=== PATIENT | male | born 1960 | race Caucasian/White ===

== ENCOUNTER 2019-02-08 11:54 | Day surgery (SDC) | payer OTHER ==
[~2019-02-08 11:54] MED LIST: Lactated Ringers 1,000 ML IV SCH
--- NOTE | 2019-02-08 12:36 | PCM.PREANE ---
Preanesthetic Assessment - Anesthesia/Transfusion/Family Hx Anesthesia History: Prior Anesthesia Without Reaction Family History of Anesthesia Reaction: No Transfusion History: No Prior Transfusion(s) Intubation History: Unknown - Review of Systems General: No Symptoms Pulmonary: No Symptoms Cardiovascular: No Symptoms Gastrointestinal: Diarrhea (since) Neurological: No Symptoms Other: Reports: None - Physical Assessment Height: 1.78 m Weight: 83.461 kg ASA Class: 2 Mental Status: Alert & Oriented x3 Airway Class: Mallampati = 2 Dentition: Reports: Normal Dentition Thyro-Mental Finger Breadths: 3 Mouth Opening Finger Breadths: 3 ROM/Head Extension: Full Lungs: Clear to Auscultation, Normal Respiratory Effort Cardiovascular: Regular Rate, Regular Rhythm - Allergies Allergies/Adverse Reactions: Allergies Allergy/AdvReac Type Severity Reaction Status Date / Time amantadine Allergy Rash Verified 02/05/19 07:57 - Blood Blood Available: No - Anesthesia Plan Pre-Op Medication Ordered: None - Acknowledgements Anesthesia Type Planned: MAC Pt an Appropriate Candidate for the Planned Anesthesia: Yes Alternatives and Risks of Anesthesia Discussed w Pt/Guardian: Yes Pt/Guardian Understands and Agrees with Anesthesia Plan: Yes PreAnesthesia Questionnaire HEENT History: Reports: Glaucoma, Other (See Below) Other HEENT History: wears glasses Cardiovascular History: Reports: Heart Murmur, High Cholesterol, Hypertension Respiratory History: Reports: None Gastrointestinal History: Reports: Chronic Diarrhea Genitourinary History: Reports: None Musculoskeletal History: Reports: None Neurological History: Reports: None Psychiatric History: Reports: None Endocrine/Metabolic History: Reports: Diabetes, Type II Hematologic History: Reports: None Immunologic History: Reports: None Oncologic (Cancer) History: Reports: None Dermatologic History: Reports: Eczema - Past Surgical History Head Surgeries/Procedures: Reports: None HEENT Surgical History: Reports: Tonsillectomy Cardiovascular Surgical History: Reports: None Respiratory Surgical History: Reports: None GI Surgical History: Reports: Colonoscopy, Hernia, Inguinal Male Surgical History: Reports: None Endocrine Surgical History: Reports: None Neurological Surgical History: Reports: None Musculoskeletal Surgical History: Reports: None Oncologic Surgical History: Reports: None Dermatological Surgical History: Reports: None - SUBSTANCE USE Smoking Status *Q: Never Smoker Days Per Week of Alcohol Use: 7 Number of Drinks Per Day: 2 Total Drinks Per Week: 14 Recreational Drug Use History: No - HOME MEDS Home Medications: Home Meds Latanoprost/Pf [Latanoprost 0.005% Eye Drop] 1 drop EYEBOTH BEDTIME 02/05/19 [ History] Lisinopril 40 mg PO DAILY 02/05/19 [History] Sildenafil [Revatio] 5 tab PO ASDIRECTED PRN 02/05/19 [History] Simvastatin 20 mg PO BEDTIME 02/05/19 [History] hydroCHLOROthiazide [Hydrochlorothiazide] 12.5 mg PO DAILY 02/05/19 [History] - CURRENT (IN HOUSE) MEDS Current Meds: Current Medications Lactated Ringer's (Ringers, Lactated) 1,000 mls @ 125 mls/hr IV ASDIRECTED JUDITH
[2019-02-08] MEDS ORDERED: Midazolam 1 MG/ML 2 ML SDV ONE (13:19)
[2019-02-08] MEDS ORDERED: fentaNYL 100 MCG/2 ML SDV ONE (13:19)
[2019-02-08] MEDS ORDERED: Lidocaine 2% 5 ML SDV ONE (13:19)
[2019-02-08] MEDS ORDERED: Propofol 200 MG/20 ML SDV ONE ×2 (13:20)
--- NOTE | 2019-02-08 14:14 | PCM.OPNOTE ---
- General Post-Op/Procedure Note Date of Surgery/Procedure: 02/08/19 Operative Procedure(s): egd w bx. colonoscopy w bx Findings: see dict [id number] Pre Op Diagnosis: increase diarrhea and gerd Post-Op Diagnosis: Same Anesthesia Technique: Moderate Sedation Primary Surgeon: Mateo Rose Pathology: egd bx cecal bx Complications: None Condition: Good
--- NOTE | 2019-02-08 14:19 | PCM.POSTAN ---
POST ANESTHESIA ASSESSMENT - MENTAL STATUS Mental Status: Alert, Oriented - RESPIRATORY Respiratory Status: Respiratory Rate WNL, Airway Patent, O2 Saturation Stable - CARDIOVASCULAR CV Status: Pulse Rate WNL, Blood Pressure Stable - GASTROINTESTINAL GI Status: No Symptoms - POST OP HYDRATION Hydration Status: Adequate & Stable
--- NOTE | 2019-02-08 14:48 | PCM48HPAN ---
Post Anesthesia Note - EVALUATION WITHIN 48HRS OF ANESTHETIC Vital Signs in Normal Range: Yes Patient Participated in Evaluation: Yes Respiratory Function Stable: Yes Airway Patent: Yes Cardiovascular Function Stable: Yes Hydration Status Stable: Yes Pain Control Satisfactory: Yes Nausea and Vomiting Control Satisfactory: Yes Mental Status Recovered: Yes Resp Rate: 10
--- NOTE | 2019-02-08 15:09 | OR ---
SURGEON: Mateo Rose MD DATE OF PROCEDURE: 02/08/2019 PREOPERATIVE DIAGNOSIS: Increased diarrhea and acid reflux. POSTOPERATIVE DIAGNOSIS: Increased diarrhea and acid reflux. PROCEDURE PERFORMED: 1. EGD with biopsy. 2. Colonoscopy with biopsy. DESCRIPTION OF PROCEDURE: EGD: The patient was taken to the endoscopy room, and with the DRAPERY OPERATOR, Diprivan was administered. A well-lubricated EGD scope was gently inserted through the oropharynx, down the esophagus, passing through the gastroesophageal junction, into the stomach. The mucosa was examined upon the passage. Any etiology will be noted. Once in the stomach, we continued to advance to the distal antrum, passed through the pylorus into the second portion of the duodenum. Again, the mucosa was examined for any abnormality and etiology. The scope was then retrieved back to the stomach and then retroflexed to look at the fundus of the stomach. If a biopsy was indicated, we will biopsy the antrum, body, and gastroesophageal junction. The air will be sucked out while the scope is retrieved to reduce the patient's discomfort. The patient tolerated the procedure well. There were no intraoperative complications. Dr. Rose was present through the whole procedure. Prior to surgery, a time-out had been called, the patient identified, procedure identified and antibiotic administered. Colonoscopy: The patient was taken to the endoscopy room. A time out was called, patient identified, and procedure identified. Diprivan was then administrated. Patient went from awake to sleep, hearing doctor talking or door closing is normal. Perineum inspection and digital examination were then performed. A well-lubricated colonoscope was gently inserted through the rectum, advanced past the rectosigmoid junction, the descending colon, splenic flexure, transverse colon, hepatic flexure, ascending colon, arrived to the cecum. Cecum was identified as dictated in the finding. Then the scope was carefully withdrawn while attention was paid to the mucosal surface for any abnormality. Air will be sucked out during the scope withdrawal. At the rectum, retroflexed to examine any rectal diseases, fistula or hemorrhoids. During mucosal examination, biopsy performed. Patient tolerated procedure well. There were no intraoperative complications, and Dr. Rose was present throughout the whole procedure. EGD FINDIN. The patient is easily sedated with DRAPERY OPERATOR and Diprivan, patient is soundly snoring. 2. Oropharynx and proximal esophagus were free of disease, stricture, or inflammation. Distal esophagus at GE junction at 40 shows mild salmon- colored change suggestive of mild acid reflux. Stomach rugae is normal in appearance and antrum is quite inflamed and duodenum is grossly normal. Scope was retrieved back to the stomach and retroflexed to look at the fundus of stomach. There was no hiatal hernia. Biopsy done at antrum and body and GE junction at 40 and sucked out the gas while scope pulling out. During the whole study, there is no blood, bile, and food particle observed. COLONOSCOPY FINDIN. The patient is easily sedated with DRAPERY OPERATOR and Diprivan, patient is soundly snoring. 2. Colon is rather straight forward. Cecum indicated by ileocecal fold, one- to-one indentation, appendiceal orifice. Light emittance is not observed. Mucosa examined upon scope pulling out. The patient does not have diverticulosis, polyp, mass, growth, inflammation, stricture, ulceration, AV malformation, bleeding, none of those. The cecum is quite hyperemic. It does not look like inflammation, but when irrigated with water, it cleared a lot. Biopsy x2 anyway for hyperemic. The patient has internal hemorrhoids moderate in size, and the patient has two skin tags about a size of 5 mm to 6 mm on either side of the rectal opening at 5 o'clock, 7 o'clock. The patient would benefit from repeat colonoscopy in 10 years from today or if clinically indicated otherwise or if the biopsy indicated otherwise. We also talked about internal hemorrhoids, the patient is interested in surgery. TAJ / BAYRON /[id number] ROSALES
== END 2019-02-08 15:15 | disposition home or self-care (01) ==
LOC: MW.SDS 11:54
PROVIDERS: ATTEND Surgery
DX: K31.89 Other diseases of stomach and duodenum (principal); K21.9 Gastro-esophageal reflux disease without esophagitis; K64.8 Other hemorrhoids; K52.9 Noninfective gastroenteritis and colitis, unspecified
CPT/HCPCS: 43239; 45380; J2001; J2250; J2704; J3010; J7120; 88305; 88312

== ENCOUNTER 2019-06-12 06:52 | Day surgery (SDC) | payer OTHER ==
--- NOTE | 2019-06-12 07:19 | PCM.PREANE ---
Preanesthetic Assessment - Anesthesia/Transfusion/Family Hx Anesthesia History: Prior Anesthesia Without Reaction Family History of Anesthesia Reaction: No Transfusion History: No Prior Transfusion(s) Intubation History: Unknown - Review of Systems General: No Symptoms Pulmonary: No Symptoms Cardiovascular: No Symptoms Gastrointestinal: No Symptoms Neurological: No Symptoms Other: Reports: None - Physical Assessment Height: 5 ft 10 in Weight: 82.1 kg ASA Class: 2 Mental Status: Alert & Oriented x3 Airway Class: Mallampati = 3 Dentition: Reports: Normal Dentition (sharp edges on lower front teeth) Thyro-Mental Finger Breadths: 3 Mouth Opening Finger Breadths: 2 (small mouth) ROM/Head Extension: Full Lungs: Clear to Auscultation, Normal Respiratory Effort Cardiovascular: Regular Rate, Regular Rhythm - Allergies Allergies/Adverse Reactions: Allergies Allergy/AdvReac Type Severity Reaction Status Date / Time amantadine Allergy Rash Verified 06/06/19 11:16 cephalexin [From Keflex] Allergy Diarrhea Verified 06/06/19 13:10 - Blood Blood Available: No - Anesthesia Plan Pre-Op Medication Ordered: None - Acknowledgements Anesthesia Type Planned: General Anesthesia Pt an Appropriate Candidate for the Planned Anesthesia: Yes Alternatives and Risks of Anesthesia Discussed w Pt/Guardian: Yes Pt/Guardian Understands and Agrees with Anesthesia Plan: Yes PreAnesthesia Questionnaire HEENT History: Reports: Glaucoma, Other (See Below) Other HEENT History: wears glasses Cardiovascular History: Reports: Heart Murmur, High Cholesterol, Hypertension, Other (See Below) (aortic systolic murmer) Respiratory History: Reports: None Gastrointestinal History: Reports: GERD, Hemorrhoids Genitourinary History: Reports: None Musculoskeletal History: Reports: None Neurological History: Reports: None Psychiatric History: Reports: None Endocrine/Metabolic History: Reports: Other (See Below) Other Endocrine/Metabolic History: "prediabetic"- was on metformin before loosing weight due to diarrhea, increased uric acid Hematologic History: Reports: None Immunologic History: Reports: None Oncologic (Cancer) History: Reports: None Dermatologic History: Reports: Eczema - Past Surgical History Head Surgeries/Procedures: Reports: None HEENT Surgical History: Reports: Tonsillectomy Cardiovascular Surgical History: Reports: None Respiratory Surgical History: Reports: None GI Surgical History: Reports: Colonoscopy, EGD, Hernia, Inguinal Male Surgical History: Reports: None Endocrine Surgical History: Reports: None Neurological Surgical History: Reports: None Musculoskeletal Surgical History: Reports: None Oncologic Surgical History: Reports: None Dermatological Surgical History: Reports: None - SUBSTANCE USE Smoking Status *Q: Never Smoker Recreational Drug Use History: No - HOME MEDS Home Medications: Home Meds Latanoprost/Pf [Latanoprost 0.005% Eye Drop] 1 drop EYEBOTH BEDTIME 02/05/19 [ History] Lisinopril 40 mg PO DAILY 02/05/19 [History] Sildenafil [Revatio] 5 tab PO ASDIRECTED PRN 02/05/19 [History] Simvastatin 20 mg PO BEDTIME 02/05/19 [History] Allopurinol [Zyloprim] 100 mg PO DAILY 06/06/19 [History] Aspirin [Halfprin] 81 mg PO DAILY 06/06/19 [History] Furosemide [Lasix] 20 mg PO DAILY 06/06/19 [History] - CURRENT (IN HOUSE) MEDS Current Meds: Current Medications Lactated Ringer's (Ringers, Lactated) 1,000 mls @ 125 mls/hr IV ASDIRECTED JUDITH
[2019-06-12] MEDS ORDERED: Ondansetron 4 MG/2 ML SDV ONE (07:24)
[2019-06-12] MEDS ORDERED: Lidocaine 2% 5 ML SDV ONE (07:24)
[2019-06-12] MEDS ORDERED: Glycopyrrolate 0.2 MG/ML SDV ONE (07:24)
[2019-06-12] MEDS ORDERED: Neostigmine Methylsulfate 1 MG/ML 5 ML Syringe ONE (07:24)
[2019-06-12] MEDS ORDERED: Propofol 200 MG/20 ML SDV ONE (07:25)
[2019-06-12] MEDS ORDERED: fentaNYL 250 MCG/5 ML SDV ONE (07:25)
[2019-06-12] MEDS ORDERED: Midazolam 1 MG/ML 2 ML SDV ONE (07:25)
[2019-06-12] MEDS ORDERED: Rocuronium 100 MG/10 ML Syringe ONE (07:25)
[2019-06-12] MEDS ORDERED: Bupivacaine 25%/EPINEPHrine/PF 30 ML ONE (07:26)
[2019-06-12] MEDS ORDERED: Clindamycin Phosphate in D5W 600 MG in Premix Bag 1 BAG IV ONE ×2 (07:40)
[2019-06-12] MEDS ORDERED: Lactated Ringers 1,000 ML IV SCH (07:45)
[2019-06-12] MEDS ORDERED: Lidocaine 2% Jelly 30 ML Tube ONE (08:26)
[2019-06-12] MEDS ORDERED: Gelatin Sponge,Absorbable 12-7 mm Sponge TOP ONE (08:43)
[2019-06-12] MEDS ORDERED: EPINEPHrine 1:10,000 1 MG/10 ML Syringe IVPUSH PRN (09:10)
[2019-06-12] MEDS ORDERED: Atropine 0.1 MG/ML 10 ML Syringe IVPUSH PRN ×2 (09:10)
[2019-06-12] MEDS ORDERED: fentaNYL 100 MCG/2 ML SDV IVPUSH PRN (09:10)
[2019-06-12] MEDS ORDERED: Naloxone 0.4 MG/ML Syringe IVPUSH PRN (09:10)
[2019-06-12] MEDS ORDERED: 50% Dextrose in Water 50 ML Syringe IVPUSH PRN (09:10)
[2019-06-12] MEDS ORDERED: Albuterol 0.083% 2.5 MG/3 ML Neb Soln NEB PRN (09:10)
--- NOTE | 2019-06-12 09:12 | PCM.OPNOTE ---
- General Post-Op/Procedure Note Date of Surgery/Procedure: 06/12/19 Operative Procedure(s): hemorrhoidectomy Findings: 2 small hemorrhoid on each side was resected; [id number] Pre Op Diagnosis: hermorrhoid Post-Op Diagnosis: Same Anesthesia Technique: General ET Tube Primary Surgeon: Mateo Rose Pathology: sent Complications: None Condition: Good
[2019-06-12] MEDS ORDERED: Acetaminophen/oxyCODONE 325-5 MG Tab PO PRN (09:13)
--- NOTE | 2019-06-12 09:40 | PCM.POSTAN ---
POST ANESTHESIA ASSESSMENT - MENTAL STATUS Mental Status: Alert, Oriented - VITAL SIGNS Vital Signs: Last Vital Signs Temp 35.9 C 06/12/19 08:56 Pulse 83 06/12/19 09:31 Resp 18 06/12/19 09:31 BP 104/54 L 06/12/19 09:31 Pulse Ox 97 06/12/19 09:31 - RESPIRATORY Respiratory Status: Respiratory Rate WNL, Airway Patent, O2 Saturation Stable - CARDIOVASCULAR CV Status: Pulse Rate WNL, Blood Pressure Stable - GASTROINTESTINAL GI Status: No Symptoms - PAIN Pain Score: 0 - POST OP HYDRATION Hydration Status: Adequate & Stable - OBSERVATIONS Free Text/Narrative:: no anesthesia problems
--- NOTE | 2019-06-12 10:29 | PCM48HPAN ---
Post Anesthesia Note - EVALUATION WITHIN 48HRS OF ANESTHETIC Vital Signs in Normal Range: Yes Patient Participated in Evaluation: Yes Respiratory Function Stable: Yes Airway Patent: Yes Cardiovascular Function Stable: Yes Hydration Status Stable: Yes Pain Control Satisfactory: Yes Nausea and Vomiting Control Satisfactory: Yes Mental Status Recovered: Yes Vital Signs: Last Vital Signs Temp 36.1 C 06/12/19 09:45 Pulse 81 06/12/19 09:45 Resp 16 06/12/19 09:45 BP 120/75 06/12/19 09:45 Pulse Ox 95 06/12/19 09:45 - COMMENTS/OBSERVATIONS Free Text/Narrative:: no anesthesia problems
--- NOTE | 2019-06-12 11:25 | OR ---
SURGEON: Mateo Rose MD DATE OF PROCEDURE: 06/12/2019 PREOPERATIVE DIAGNOSIS: Hemorrhoids. POSTOPERATIVE DIAGNOSIS: Hemorrhoids. PROCEDURE PERFORMED: Hemorrhoidectomy. PRIMARY SURGEON: Mateo Rose MD. COMPLICATIONS: None. FINDINGS: The patient has two small hemorrhoids with a bit compound, external-internal, one on each side. In the prone position, the little bit bigger one at about 8 o'clock and somewhat smaller one at 5 o'clock. They are both removed. PROCEDURE IN DETAIL: The patient was taken to operating room and placed in a supine position. Upon induction of general endotracheal anesthesia, the patient was repositioned into a jackknife position. The patient was then prepped and draped in a sterile fashion. Time-out was then called, patient identified and procedure identified. Clindamycin 600 was given IV prophylactically. First, a three-finger dilatation and then followed with a speculum examination. The patient does not have any internal hemorrhoids, only just mild. The patient has two external hemorrhoids, a little bit compound, into a small component of internal hemorrhoid. On the prone position, one at 8 o'clock, another one at 5 o'clock. The 8 o'clock was resected first using 3-0 chromic stitch, at the far end was tied for hemostasis, and the hemorrhoid was then picked up and excised. The mucosa defect was repaired by use of 3-0 chromic. Followed by the second hemorrhoid and a similar procedure. Using a 3-0 chromic stitch, far end was tied for hemostasis followed with the hemorrhoid resected and mucosa defect was closed with baseball stitches, interlocking, for hemostasis. This was then followed with local injection for hemostasis and then Gelfoam with lidocaine was inserted for pain management. The patient was then repositioned into supine position, awakened, extubated, and transferred to recovery in hemodynamically stable condition. Hemorrhoidectomy was dry upon surgery finished, bone dry. The patient tolerated the procedure well. There were no intraoperative complications. Dr. Rose was present through the whole procedure. TAJ / BAYRON /[id number]
== END 2019-06-12 10:35 | disposition home or self-care (01) ==
LOC: MW.SDS 06:52
PROVIDERS: ATTEND Surgery
DX: K64.8 Other hemorrhoids (principal); K64.4 Residual hemorrhoidal skin tags; K21.9 Gastro-esophageal reflux disease without esophagitis; I10 Essential (primary) hypertension; E78.00 Pure hypercholesterolemia, unspecified; Z88.1 Allergy status to other antibiotic agents; Z88.8 Allergy status to other drugs, medicaments and biological substances; Z79.82 Long term (current) use of aspirin; Z79.899 Other long term (current) drug therapy
CPT/HCPCS: J2001; J2250; J2405; J2704; J3010; J3490; J7120

== ENCOUNTER 2019-07-11 12:31 | Emergency (ER) | payer SELFPAY ==
[2019-07-11] MEDS ORDERED: Sodium Chloride 0.9% 2.5 ML Syringe FLUSH PRN (12:34)
[2019-07-11] MEDS ORDERED: Sodium Chloride 0.9% 10 ML Syringe FLUSH PRN (12:34)
--- NOTE | 2019-07-11 13:30 | CR ---
Chest: Portable view of the chest was obtained. Comparison: Prior chest CT of 07/11/19 and chest x-ray of 06/26/19. Moderately large right sided pleural effusion is seen. Findings are slightly more prominent than on previous chest x-ray. Findings cause some adjacent atelectasis within the right lung. There is a small amount of fluid extending into the right minor fissure. Left lung is clear. Heart size appears within normal limits for portable technique. Upper mediastinum is normal. Bony structures are grossly intact. Impression: 1. Moderately large right-sided pleural effusion slightly increased in amount from previous chest x-ray. 2. Atelectasis adjacent to the pleural effusion. 3. Other portions of the portable chest x-ray are unremarkable. Diagnostic code #3 MTDD
[2019-07-11 13:54] LABS: BLOOD UREA NITROGEN,BUN 24 mg/dL (7.0-18.0); CARBON DIOXIDE,CO2 28.6 mmol/L (21.0-32.0); CHLORIDE,CL 100 mmol/L (98-107); GLUCOSE RANDOM 90 mg/dL (74-106); POTASSIUM,K 3.8 mmol/L (3.5-5.1); SODIUM,NA 138 mmol/L (136-148)
--- NOTE | 2019-07-11 14:20 | EDM.PDOC ---
ED HPI GENERAL MEDICAL PROBLEM - General Chief Complaint: Respiratory Problem Stated Complaint: FLUID IN LT LUNG Time Seen by Provider: 07/11/19 12:32 Source of Information: Reports: Patient History Limitations: Reports: No Limitations - History of Present Illness INITIAL COMMENTS - FREE TEXT/NARRATIVE: History of present illness: []Patient was transferred to the ER by general surgery for transfer to another facility for pleuracentesis. Found to have a large right pleural effusion in his right lung and liver metastases on CT scans. We do not have a radiologist at this facility and cannot do the procedure here. Dr. Gomez, our retail cosmetics sales beauty advisor, is also working with this patient is concerned about right heart failure. Patient states that he gets short of breath with exertion but is fine when he is laying in bed. He has no other complaints at this time. Review of systems: As per history of present illness and below otherwise all systems reviewed and negative. Past medical history: As per history of present illness and as reviewed below otherwise noncontributory. Surgical history: As per history of present illness and as reviewed below otherwise noncontributory. Social history: No reported history of drug or alcohol abuse. Family history: As per history of present illness and as reviewed below otherwise noncontributory. Physical exam: General: Well developed, well nourished in NAD HEENT: Atraumatic, normocephalic, pupils reactive, negative for conjunctival pallor or scleral icterus, mucous membranes moist, throat clear, neck supple, nontender, trachea midline. Lungs: Clear to auscultation, breath sounds equal bilaterally, chest nontender. Heart: S1S2, regular, negative for clicks, rubs, or JVD. Abdomen: NABS, Soft, nondistended, nontender. Negative for masses or hepatosplenomegaly. Negative for costovertebral tenderness. Pelvis: Stable nontender. Genitourinary: Deferred. Rectal: Deferred. Extremities: Atraumatic, negative for cords or calf pain. Neurovascular unremarkable. Neuro: Awake, alert, oriented. Cranial nerves II through XII unremarkable. Cerebellum unremarkable. Motor and sensory unremarkable throughout. Exam nonfocal. Skin:warm and dry Diagnostics: CBC, chemistry, INR, PTT, chest x-ray Therapeutics: None ED Course: Amanda Tineo accepts patient transfer understanding of need for admission and workup. Impression: Right pleural effusion with liver metastases, unknown primary Prescriptions: None Plan: transfer To [facility] by EMS ground Definitive disposition and diagnosis as appropriate pending reevaluation and review of above. - Related Data Allergies Allergy/AdvReac Type Severity Reaction Status Date / Time amantadine Allergy Rash Verified 07/11/19 12:52 cephalexin [From Keflex] Allergy Diarrhea Verified 07/11/19 12:52 Home Meds: Home Meds Latanoprost/Pf [Latanoprost 0.005% Eye Drop] 1 drop EYEBOTH BEDTIME 02/05/19 [ History] Lisinopril 40 mg PO DAILY 02/05/19 [History] Simvastatin 20 mg PO BEDTIME 02/05/19 [History] Allopurinol [Zyloprim] 100 mg PO DAILY 06/06/19 [History] Bumetanide 2 mg PO ASDIRECTED 07/11/19 [History] Colesevelam [Welchol] 625 mg PO ASDIRECTED 07/11/19 [History] Potassium 20 meq PO ASDIRECTED 07/11/19 [History] Past Medical History HEENT History: Reports: Glaucoma, Other (See Below) Other HEENT History: wears glasses Cardiovascular History: Reports: Heart Murmur, High Cholesterol, Hypertension, Other (See Below) Respiratory History: Reports: None Gastrointestinal History: Reports: GERD, Hemorrhoids Genitourinary History: Reports: None Musculoskeletal History: Reports: None Neurological History: Reports: None Psychiatric History: Reports: None Endocrine/Metabolic History: Reports: Other (See Below) Other Endocrine/Metabolic History: "prediabetic"- was on metformin before loosing weight due to diarrhea, increased uric acid Hematologic History: Reports: None Immunologic History: Reports: None Oncologic (Cancer) History: Reports: None Dermatologic History: Reports: Eczema - Infectious Disease History Infectious Disease History: Reports: None - Past Surgical History Head Surgeries/Procedures: Reports: None HEENT Surgical History: Reports: Tonsillectomy Cardiovascular Surgical History: Reports: None Respiratory Surgical History: Reports: None GI Surgical History: Reports: Colonoscopy, EGD, Hernia, Inguinal Male Surgical History: Reports: None Endocrine Surgical History: Reports: None Neurological Surgical History: Reports: None Musculoskeletal Surgical History: Reports: None Oncologic Surgical History: Reports: None Dermatological Surgical History: Reports: None Social & Family History - Family History Family Medical History: Noncontributory - Tobacco Use Smoking Status *Q: Never Smoker Second Hand Smoke Exposure: No - Caffeine Use Caffeine Use: Reports: Coffee - Recreational Drug Use Recreational Drug Use: No ED ROS GENERAL - Review of Systems Review Of Systems: See Below ED EXAM, GENERAL - Physical Exam Exam: See Below Course - Vital Signs Last Recorded V/S: Last Vital Signs Temp 97.3 F 07/11/19 14:55 Pulse 97 07/11/19 14:55 Resp 18 07/11/19 14:55 BP 106/72 07/11/19 14:55 Pulse Ox 97 07/11/19 14:55 - Orders/Labs/Meds Orders: Active Orders 24 hr Category Date Time Status Saline Lock Insert [OM.PC] Stat Oth 07/11/19 12:34 Ordered Labs: Laboratory Tests 07/11/19 07/11/19 07/11/19 Range/Units 13:20 13:20 13:20 WBC 9.30 (4.0-11.0) K/uL RBC 4.70 (4.50-5.90) M/uL Hgb 14.5 (13.0-17.0) g/dL Hct 43.3 (38.0-50.0) % MCV 92.1 (80.0-98.0) fL MCH 30.9 (27.0-32.0) pg MCHC 33.5 (31.0-37.0) g/dL RDW Std Deviation 48.0 (28.0-62.0) fl RDW Coeff of Tia 14 (11.0-15.0) % Plt Count 486 H (150-400) K/uL MPV 9.80 (7.40-12.00) fL Neut % (Auto) 72.4 (48.0-80.0) % Lymph % (Auto) 15.8 L (16.0-40.0) % Pershing % (Auto) 10.4 (0.0-15.0) % Eos % (Auto) 1.0 (0.0-7.0) % Baso % (Auto) 0.4 (0.0-1.5) % Neut # (Auto) 6.7 H (1.4-5.7) K/uL Lymph # (Auto) 1.5 (0.6-2.4) K/uL Pershing # (Auto) 1.0 H (0.0-0.8) K/uL Eos # (Auto) 0.1 (0.0-0.7) K/uL Baso # (Auto) 0.0 (0.0-0.1) K/uL Nucleated RBC % 0.0 /100WBC Nucleated RBCs # 0 K/uL INR 1.16 APTT 27.3 (18.6-31.3) SEC Sodium 138 (136-148) mmol/L Potassium 3.8 (3.5-5.1) mmol/L Chloride 100 (98-107) mmol/L Carbon Dioxide 28.6 (21.0-32.0) mmol/L BUN 24 H (7.0-18.0) mg/dL Creatinine 1.1 (0.8-1.3) mg/dL Est Cr Clr Drug Dosing 73.74 mL/min Estimated GFR (MDRD) > 60.0 ml/min Glucose 90 (74-106) mg/dL Calcium 8.6 (8.5-10.1) mg/dL Total Bilirubin 1.0 (0.2-1.0) mg/dL AST 43 H (15-37) IU/L ALT 64 H (14-63) IU/L Alkaline Phosphatase 328 H (46-116) U/L Total Protein 6.2 L (6.4-8.2) g/dL Albumin 2.8 L (3.4-5.0) g/dL Globulin 3.4 (2.6-4.0) g/dL Albumin/Globulin Ratio 0.8 L (0.9-1.6) Meds: Medications Discontinued Medications Generic Name Dose Route Start Last Admin Trade Name Freq PRN Reason Stop Dose Admin Sodium Chloride 10 ml 07/11/19 12:34 Saline Flush FLUSH ASDIRECTED PRN Keep Vein Open Sodium Chloride 2.5 ml 07/11/19 12:34 Saline Flush FLUSH ASDIRECTED PRN Keep Vein Open Departure - Departure Time of Disposition: 15:20 Disposition: DC/Tfer to Acute Hospital 02 Condition: Fair Clinical Impression: Recurrent right pleural effusion, Liver metastases - Discharge Information *PRESCRIPTION DRUG MONITORING PROGRAM REVIEWED*: No *COPY OF PRESCRIPTION DRUG MONITORING REPORT IN PATIENT BRIGHT: No Referrals: Mateo Rose MD [Primary Care Provider] - Forms: ED Department Discharge - My Orders Last 24 Hours: My Active Orders 07/11/19 12:34 Saline Lock Insert [OM.PC] Stat - Assessment/Plan Last 24 Hours: My Active Orders 07/11/19 12:34 Saline Lock Insert [OM.PC] Stat
== END 2019-07-11 14:56 ==
LOC: MW.ED 12:31
DX: J90 Pleural effusion, not elsewhere classified (principal); C80.1 Malignant (primary) neoplasm, unspecified; C78.7 Secondary malignant neoplasm of liver and intrahepatic bile duct; Z88.8 Allergy status to other drugs, medicaments and biological substances; Z88.1 Allergy status to other antibiotic agents
CPT/HCPCS: 36415; 71045; 71045-26; 80053; 85025; 85610; 85730; 99284-25

== ENCOUNTER 2020-05-14 15:33 | Emergency (ER) | payer OTHER ==
[2020-05-14] MEDS ORDERED: Sodium Chloride 0.9% 10 ML Syringe FLUSH PRN (16:27)
[2020-05-14] MEDS ORDERED: Sodium Chloride 0.9% 2.5 ML Syringe FLUSH PRN (16:27)
--- NOTE | 2020-05-14 16:35 | EDM.PDOC ---
<Carlos Morrison - Last Filed: 05/14/20 19:51> ED HPI GENERAL MEDICAL PROBLEM - General Chief Complaint: Respiratory Problem Stated Complaint: COUGHING LOW GRADE FEVER Time Seen by Provider: 05/14/20 15:36 - Related Data Allergies Allergy/AdvReac Type Severity Reaction Status Date / Time amantadine Allergy Rash Verified 07/11/19 12:52 cephalexin [From Keflex] Allergy Diarrhea Verified 07/11/19 12:52 Home Meds: Home Meds Latanoprost/Pf [Latanoprost 0.005% Eye Drop] 1 drop EYEBOTH BEDTIME 02/05/19 [History] Simvastatin 20 mg PO BEDTIME 02/05/19 [History] allopurinoL [Zyloprim] 100 mg PO DAILY 06/06/19 [History] Bumetanide 2 mg PO ASDIRECTED 07/11/19 [History] Colesevelam [Welchol] 625 mg PO BID 07/11/19 [History] Potassium 20 meq PO BID 07/11/19 [History] Albuterol Sulfate [Proair Hfa] 2 puff INH Q6H 05/14/20 [History] Amoxicillin/Potassium Clav [Augmentin 875-125 Tablet] 1 each PO BID 7 Days #14 tablet 05/14/20 [Rx] Aspirin [Halfprin] 81 mg PO DAILY 05/14/20 [History] Esomeprazole [NexIUM] 40 mg PO DAILY 05/14/20 [History] Iron Polysaccharides Complex [Ferrex 150] 150 mg PO BID 05/14/20 [History] Lanreotide Acetate [Somatuline Depot] 120 mg SUBCUT ASDIRECTED 05/14/20 [History] Multivitamin/Iron/Folic Acid [Centrum Adults Tablet] 1 each PO DAILY 05/14/20 [History] Pyridoxine HCl (Vitamin B6) [Vitamin B-6] 100 mg PO DAILY 05/14/20 [History] Course - Re-Assessments/Exams Free Text/Narrative Re-Assessment/Exam: 05/14/20 19:51 Carlos Morrison DO attending physician: I have discussed this patient's care with PRIMO Orona and agree with plan and management. Patient is to f/u with his high climber on Monday. He was explained strict return precautions. He agrees with and understands plan. No acute pathology warranting hospital admission identified on this ED visit, although patient does have many chronic comorbidities and should follow-up on 05/18/2020 or in ED sooner if worsening condition. Departure - Departure Disposition: Home, Self-Care 01 Clinical Impression: Pleural effusion - Discharge Information Prescriptions: Amoxicillin/Potassium Clav [Augmentin 875-125 Tablet] 1 each PO BID 7 Days #14 tablet Instructions: Pleural Effusion Referrals: Jackson Potts MD [Primary Care Provider] - Forms: ED Department Discharge Additional Instructions: The following information is given to patients seen in the emergency department who are being discharged to home. This information is to outline your options for follow-up care. We provide all patients seen in our emergency department with a follow-up referral. The need for follow-up, as well as the timing and circumstances, are variable depending upon the specifics of your emergency department visit. If you don't have a primary care physician on staff, we will provide you with a referral. We always advise you to contact your personal physician following an emergency department visit to inform them of the circumstance of the visit and for follow-up with them and/or the need for any referrals to a consulting specialist. The emergency department will also refer you to a specialist when appropriate. This referral assures that you have the opportunity for follow-up care with a specialist. All of these measure are taken in an effort to provide you with optimal care, which includes your follow-up. Under all circumstances we always encourage you to contact your private physician who remains a resource for coordinating your care. When calling for follow-up care, please make the office aware that this follow-up is from your recent emergency room visit. If for any reason you are refused follow-up, please contact the [facility] Emergency Department at and asked to speak to the emergency department charge nurse. [facility] [address] [place] [id number] [facility] [address] [place] [id number] 1. Take medication as prescribed. You can alternate ibuprofen and Tylenol as directed for pain and discomfort. 2. Follow-up with your primary care provider and high climber as scheduled and as discussed. Return to the ED as needed and as discussed. <Lori Orona - Last Filed: 05/14/20 20:32> ED HPI GENERAL MEDICAL PROBLEM - General Source of Information: Reports: Patient, Family History Limitations: Reports: No Limitations - History of Present Illness INITIAL COMMENTS - FREE TEXT/NARRATIVE: HISTORY AND PHYSICAL: History of present illness: Patient is a 59-year-old male who presents to the ED today with concern of fever since yesterday of approximately 101. Patient presents today with his and has a complex medical history with neurogenic endocrine malignancy with metastasis, stage 4 with congestive heart failure. Patient's explains that patient has had numerous paracentesis procedures done in order to remove fluid out of patient's lung since diagnosis of cancer Patient's states that he recently had a procedure that resulted in a collapsed lung and patient had to have a chest tube in the middle of April. Patient's then states that patient had another pleurocentesis on Monday (2 days ago) at [facility] in [place] and was told that they were unable to drain all of the fluid due to loculations. Patient states then he went home and started feeling feverish and has a documented 101 temperature yesterday at home. Patient states he has an appointment on Monday with a high climber in [place] to further assess the loculations. Patient states that he called his primary care doctor today about his symptoms and was told to come to the emergency room. Patient states that he is not on chemotherapy but does receive an injection every 4 weeks for treatment of his cancer. Patient states he has also had a cough for 1 month and has not been tested for coronavirus or had any exposure that he is aware of. Patient's states that he also stopped warfarin 2 weeks ago because he was having bleeding issues with these procedures of drawing out fluid from his lungs. Patient states he was originally placed on the warfarin as he had 3 valves replaced in November at [facility] and was told that he needed to be on warfarin for 6 months. Patient denies chest pain, shortness of breath. Denies headache, neck stiff ness, change in vision, syncope, or near syncope. Denies nausea, vomiting, abdominal pain, diarrhea, constipation, or dysuria. Has not noted any blood in urine or stool. Patient has been eating and drinking appropriately. Review of systems: As per history of present illness and below otherwise all systems reviewed and negative. Past medical history: As per history of present illness and as reviewed below otherwise noncontributory. Surgical history: As per history of present illness and as reviewed below otherwise noncontributory. Social history: See social history for further information Family history: As per history of present illness and as reviewed below otherwise noncontributory. Physical exam: General: Patient is alert, oriented, and in no acute distress. Patient sitting comfortably on exam table. HEENT: Atraumatic, normocephalic, pupils equal and reactive bilaterally, negative for conjunctival pallor or scleral icterus, mucous membranes moist, TMs normal bilaterally, throat clear, neck supple, nontender, trachea midline. No drooling or trismus noted. No meningeal signs. No hot potato voice noted. Lungs: Patient speaking clearly without breathlessness, no wheezing or stridor, no accessory muscle use or respiratory distress. Auscultation deferred due to current COV-ID 19 outbreak but patient does have a periodic dry cough no exam. Heart: Auscultation deferred due to current COV-ID 19 outbreak. Abdomen: Nondistended Pelvis: Stable nontender. Genitourinary: Deferred. Rectal: Deferred. Skin: Intact, warm, dry. No lesions or rashes noted. Extremities: Atraumatic, negative for cords or calf pain. Neurovascular unremarkable. Neuro: Awake, alert, oriented. Cranial nerves II through XII unremarkable. Cerebellum unremarkable. Motor and sensory unremarkable throughout. Exam nonfocal. Notes: Tamiko Shrestha verbally involved in patient care. Patient does have an appointment Monday morning with high climber to address loculations. Patient also states that his hemoglobin has been low which is in part why he also came off warfarin and is working with his primary care provider on finding if there is a source of bleed. He said his last hgb was around 8. Vitals have been stable throughout stay in ED and repeat temperature checks show no indication of fever. Will provide patient with abx for possible early pneumonia with close follow up outpatient. Thoroughly discussed signs and symptoms with patient that would prompt return to the ED. Voices understanding and is agreeable to plan of care. Denies any further questions or concerns at this time. Diagnostics: CBC, CMP, UA, CXR, Trop, EKG, Blood culture x 2, lactate, COVID-19, PT/INR Therapeutics: Saline lock Prescription: Augmentin Impression: Pleural effusion, chronic Anemia, chronic Congestive Heart Failure Plan: 1. Take medication as prescribed. You can alternate ibuprofen and Tylenol as directed for pain and discomfort. 2. Follow-up with your primary care provider and high climber as scheduled and as discussed. Return to the ED as needed and as discussed. Definitive disposition and diagnosis as appropriate pending reevaluation and review of above. Past Medical History HEENT History: Reports: Glaucoma, Other (See Below) Other HEENT History: wears glasses Cardiovascular History: Reports: Heart Murmur, High Cholesterol, Hypertension, Other (See Below) Respiratory History: Reports: None Gastrointestinal History: Reports: GERD, Hemorrhoids Genitourinary History: Reports: None Musculoskeletal History: Reports: None Neurological History: Reports: None Psychiatric History: Reports: None Endocrine/Metabolic History: Reports: Other (See Below) Other Endocrine/Metabolic History: "prediabetic"- was on metformin before loosing weight due to diarrhea, increased uric acid Hematologic History: Reports: None Immunologic History: Reports: None Oncologic (Cancer) History: Reports: None Other Oncologic History: Neuroendocrine Carcinoma Dermatologic History: Reports: Eczema - Infectious Disease History Infectious Disease History: Reports: None - Past Surgical History Head Surgeries/Procedures: Reports: None HEENT Surgical History: Reports: Tonsillectomy Cardiovascular Surgical History: Reports: None Respiratory Surgical History: Reports: None GI Surgical History: Reports: Colonoscopy, EGD, Hernia, Inguinal Male Surgical History: Reports: None Endocrine Surgical History: Reports: None Neurological Surgical History: Reports: None Musculoskeletal Surgical History: Reports: None Oncologic Surgical History: Reports: None Dermatological Surgical History: Reports: None Social & Family History - Family History Family Medical History: Noncontributory - Tobacco Use Smoking Status *Q: Never Smoker - Caffeine Use Caffeine Use: Reports: None - Recreational Drug Use Recreational Drug Use: No ED ROS GENERAL - Review of Systems Review Of Systems: Comprehensive ROS is negative, except as noted in HPI. ED EXAM, GENERAL - Physical Exam Exam: See Below (see dictation) Course - Vital Signs Last Recorded V/S: Last Vital Signs Temp 98.3 F 05/14/20 20:22 Pulse 81 05/14/20 20:22 Resp 20 08/06/20 20:22 BP 105/64 05/14/20 20:22 Pulse Ox 94 L 05/14/20 20:22 - Orders/Labs/Meds Orders: Active Orders 24 hr Category Date Time Status Cardiac Monitoring [RC] . DIRECTED Care 05/14/20 16:27 Active EKG Documentation Completion [RC] STAT Care 05/14/20 16:27 Active CULTURE BLOOD [BC] Stat Lab 05/14/20 16:40 Received CULTURE BLOOD [BC] Stat Lab 05/14/20 16:50 Received Sodium Chloride 0.9% [Saline Flush] Med 05/14/20 16:27 Active 10 ml FLUSH ASDIRECTED PRN Sodium Chloride 0.9% [Saline Flush] Med 05/14/20 16:27 Active 2.5 ml FLUSH ASDIRECTED PRN Blood Culture x2 Reflex Set [OM.PC] Stat Oth 05/14/20 16:28 Ordered Saline Lock Insert [OM.PC] Stat Oth 05/14/20 16:27 Ordered Medication Orders Sodium Chloride (Saline Flush) 2.5 ml FLUSH ASDIRECTED PRN PRN Reason: Keep Vein Open Sodium Chloride (Saline Flush) 10 ml FLUSH ASDIRECTED PRN PRN Reason: Keep Vein Open Labs: Laboratory Tests 05/14/20 05/14/20 05/14/20 Range/Units 16:40 16:40 16:40 WBC 10.14 (4.0-11.0) K/uL RBC 3.50 L (4.50-5.90) M/uL Hgb 8.8 L (13.0-17.0) g/dL Hct 30.0 L (38.0-50.0) % MCV 85.7 (80.0-98.0) fL MCH 25.1 L (27.0-32.0) pg MCHC 29.3 L (31.0-37.0) g/dL RDW Std Deviation 64.2 H (28.0-62.0) fl RDW Coeff of Tia 21 H (11.0-15.0) % Plt Count 471 H (150-400) K/uL MPV 10.10 (7.40-12.00) fL Neut % (Auto) 74.3 (48.0-80.0) % Lymph % (Auto) 11.2 L (16.0-40.0) % [place] % (Auto) 10.6 (0.0-15.0) % Eos % (Auto) 3.3 (0.0-7.0) % Baso % (Auto) 0.6 (0.0-1.5) % Neut # (Auto) 7.5 H (1.4-5.7) K/uL Lymph # (Auto) 1.1 (0.6-2.4) K/uL [place] # (Auto) 1.1 H (0.0-0.8) K/uL Eos # (Auto) 0.3 (0.0-0.7) K/uL Baso # (Auto) 0.1 (0.0-0.1) K/uL Nucleated RBC % 0.0 /100WBC Nucleated RBCs # 0 K/uL INR Lactate (0.20-2.00) mmol/L Sodium 135 L (136-148) mmol/L Potassium 3.9 (3.5-5.1) mmol/L Chloride 96 L (98-107) mmol/L Carbon Dioxide 33.0 H (21.0-32.0) mmol/L BUN 18 (7.0-18.0) mg/dL Creatinine 1.2 (0.8-1.3) mg/dL Est Cr Clr Drug Dosing 66.75 mL/min Estimated GFR (MDRD) > 60.0 ml/min Glucose 100 (74-106) mg/dL Calcium 8.7 (8.5-10.1) mg/dL Total Bilirubin 0.5 (0.2-1.0) mg/dL AST 24 (15-37) IU/L ALT 29 (14-63) IU/L Alkaline Phosphatase 717 H (46-116) U/L Troponin I < 0.050 (0.000-0.056) ng/mL B-Natriuretic Peptide (<100) PG/ML Total Protein 8.5 H (6.4-8.2) g/dL Albumin 3.3 L (3.4-5.0) g/dL Globulin 5.2 H (2.6-4.0) g/dL Albumin/Globulin Ratio 0.6 L (0.9-1.6) Urine Color YELLOW Urine Appearance CLEAR Urine pH 6.5 (5.0-8.0) Ur Specific [place] 1.010 (1.001-1.035) Urine Protein NEGATIVE (NEGATIVE) mg/dL Urine Glucose (UA) NEGATIVE (NEGATIVE) mg/dL Urine Ketones NEGATIVE (NEGATIVE) mg/dL Urine Occult Blood NEGATIVE (NEGATIVE) Urine Nitrite NEGATIVE (NEGATIVE) Urine Bilirubin NEGATIVE (NEGATIVE) Urine Urobilinogen 0.2 (<2.0) EU/dL Ur Leukocyte Esterase NEGATIVE (NEGATIVE) COVID-19 (JUAN CARLOS) (NEGATIVE) 05/14/20 05/14/20 05/14/20 Range/Units 16:40 16:40 16:40 WBC (4.0-11.0) K/uL RBC (4.50-5.90) M/uL Hgb (13.0-17.0) g/dL Hct (38.0-50.0) % MCV (80.0-98.0) fL MCH (27.0-32.0) pg MCHC (31.0-37.0) g/dL RDW Std Deviation (28.0-62.0) fl RDW Coeff of Tia (11.0-15.0) % Plt Count (150-400) K/uL MPV (7.40-12.00) fL Neut % (Auto) (48.0-80.0) % Lymph % (Auto) (16.0-40.0) % [place] % (Auto) (0.0-15.0) % Eos % (Auto) (0.0-7.0) % Baso % (Auto) (0.0-1.5) % Neut # (Auto) (1.4-5.7) K/uL Lymph # (Auto) (0.6-2.4) K/uL [place] # (Auto) (0.0-0.8) K/uL Eos # (Auto) (0.0-0.7) K/uL Baso # (Auto) (0.0-0.1) K/uL Nucleated RBC % /100WBC Nucleated RBCs # K/uL INR 1.29 Lactate 0.6 (0.20-2.00) mmol/L Sodium (136-148) mmol/L Potassium (3.5-5.1) mmol/L Chloride (98-107) mmol/L Carbon Dioxide (21.0-32.0) mmol/L BUN (7.0-18.0) mg/dL Creatinine (0.8-1.3) mg/dL Est Cr Clr Drug Dosing mL/min Estimated GFR (MDRD) ml/min Glucose (74-106) mg/dL Calcium (8.5-10.1) mg/dL Total Bilirubin (0.2-1.0) mg/dL AST (15-37) IU/L ALT (14-63) IU/L Alkaline Phosphatase (46-116) U/L Troponin I (0.000-0.056) ng/mL B-Natriuretic Peptide 140 H (<100) PG/ML Total Protein (6.4-8.2) g/dL Albumin (3.4-5.0) g/dL Globulin (2.6-4.0) g/dL Albumin/Globulin Ratio (0.9-1.6) Urine Color Urine Appearance Urine pH (5.0-8.0) Ur Specific [place] (1.001-1.035) Urine Protein (NEGATIVE) mg/dL Urine Glucose (UA) (NEGATIVE) mg/dL Urine Ketones (NEGATIVE) mg/dL Urine Occult Blood (NEGATIVE) Urine Nitrite (NEGATIVE) Urine Bilirubin (NEGATIVE) Urine Urobilinogen (<2.0) EU/dL Ur Leukocyte Esterase (NEGATIVE) COVID-19 (JUAN CARLOS) (NEGATIVE) 05/14/20 Range/Units 16:51 WBC (4.0-11.0) K/uL RBC (4.50-5.90) M/uL Hgb (13.0-17.0) g/dL Hct (38.0-50.0) % MCV (80.0-98.0) fL MCH (27.0-32.0) pg MCHC (31.0-37.0) g/dL RDW Std Deviation (28.0-62.0) fl RDW Coeff of Tia (11.0-15.0) % Plt Count (150-400) K/uL MPV (7.40-12.00) fL Neut % (Auto) (48.0-80.0) % Lymph % (Auto) (16.0-40.0) % [place] % (Auto) (0.0-15.0) % Eos % (Auto) (0.0-7.0) % Baso % (Auto) (0.0-1.5) % Neut # (Auto) (1.4-5.7) K/uL Lymph # (Auto) (0.6-2.4) K/uL [place] # (Auto) (0.0-0.8) K/uL Eos # (Auto) (0.0-0.7) K/uL Baso # (Auto) (0.0-0.1) K/uL Nucleated RBC % /100WBC Nucleated RBCs # K/uL INR Lactate (0.20-2.00) mmol/L Sodium (136-148) mmol/L Potassium (3.5-5.1) mmol/L Chloride (98-107) mmol/L Carbon Dioxide (21.0-32.0) mmol/L BUN (7.0-18.0) mg/dL Creatinine (0.8-1.3) mg/dL Est Cr Clr Drug Dosing mL/min Estimated GFR (MDRD) ml/min Glucose (74-106) mg/dL Calcium (8.5-10.1) mg/dL Total Bilirubin (0.2-1.0) mg/dL AST (15-37) IU/L ALT (14-63) IU/L Alkaline Phosphatase (46-116) U/L Troponin I (0.000-0.056) ng/mL B-Natriuretic Peptide (<100) PG/ML Total Protein (6.4-8.2) g/dL Albumin (3.4-5.0) g/dL Globulin (2.6-4.0) g/dL Albumin/Globulin Ratio (0.9-1.6) Urine Color Urine Appearance Urine pH (5.0-8.0) Ur Specific [place] (1.001-1.035) Urine Protein (NEGATIVE) mg/dL Urine Glucose (UA) (NEGATIVE) mg/dL Urine Ketones (NEGATIVE) mg/dL Urine Occult Blood (NEGATIVE) Urine Nitrite (NEGATIVE) Urine Bilirubin (NEGATIVE) Urine Urobilinogen (<2.0) EU/dL Ur Leukocyte Esterase (NEGATIVE) COVID-19 (JUAN CARLOS) NEGATIVE (NEGATIVE) Meds: Medications Generic Name Dose Route Start Last Admin Trade Name Freq PRN Reason Stop Dose Admin Sodium Chloride 2.5 ml 05/14/20 16:27 Saline Flush FLUSH ASDIRECTED PRN Keep Vein Open Sodium Chloride 10 ml 05/14/20 16:27 Saline Flush FLUSH ASDIRECTED PRN Keep Vein Open Discontinued Medications Generic Name Dose Route Start Last Admin Trade Name Freq PRN Reason Stop Dose Admin Iopamidol 75 ml 05/14/20 19:19 05/14/20 19:20 Isovue Multipack-370 (76%) IVPUSH 05/14/20 19:20 75 ml ONETIME STA Administration Departure - Departure Time of Disposition: 20:00 Sepsis Event Note (ED) - Evaluation Sepsis Screening Result: No Definite Risk - Focused Exam Vital Signs: Vital Signs Temp Pulse Resp BP Pulse Ox 05/14/20 20:22 98.3 F 81 20 105/64 94 L 05/14/20 17:57 80 17 115/68 99 05/14/20 17:27 80 115/71 98 05/14/20 16:58 88 16 116/71 98 05/14/20 16:02 97.0 F 93 19 98/62 94 L - My Orders Last 24 Hours: My Active Orders 05/14/20 16:27 Cardiac Monitoring [RC] . DIRECTED EKG Documentation Completion [RC] STAT Sodium Chloride 0.9% [Saline Flush] 10 ml FLUSH ASDIRECTED PRN Sodium Chloride 0.9% [Saline Flush] 2.5 ml FLUSH ASDIRECTED PRN Saline Lock Insert [OM.PC] Stat 05/14/20 16:28 Blood Culture x2 Reflex Set [OM.PC] Stat 05/14/20 16:40 CULTURE BLOOD [BC] Stat 05/14/20 16:50 CULTURE BLOOD [BC] Stat - Assessment/Plan Last 24 Hours: My Active Orders 05/14/20 16:27 Cardiac Monitoring [RC] . DIRECTED EKG Documentation Completion [RC] STAT Sodium Chloride 0.9% [Saline Flush] 10 ml FLUSH ASDIRECTED PRN Sodium Chloride 0.9% [Saline Flush] 2.5 ml FLUSH ASDIRECTED PRN Saline Lock Insert [OM.PC] Stat 05/14/20 16:28 Blood Culture x2 Reflex Set [OM.PC] Stat 05/14/20 16:40 CULTURE BLOOD [BC] Stat 05/14/20 16:50 CULTURE BLOOD [BC] Stat
[2020-05-14 17:37] LABS: BLOOD UREA NITROGEN,BUN 18 mg/dL (7.0-18.0); CHLORIDE,CL 96 mmol/L (98-107); GLUCOSE RANDOM 100 mg/dL (74-106); POTASSIUM,K 3.9 mmol/L (3.5-5.1); SODIUM,NA 135 mmol/L (136-148)
[2020-05-14] MEDS ORDERED: Iopamidol 755 MG/ML 500 ML Multipack Bottle IVPUSH STA (19:19)
--- NOTE | 2020-05-14 19:29 | CR ---
INDICATION: Pain, shortness of breath TECHNIQUE: Chest 1 view. COMPARISON: Chest x-ray 07/11/2019 FINDINGS: There are postsurgical changes of median sternotomy and valve replacement. There is a small to moderate right pleural effusion which appears mildly loculated. This is increased compared to prior exam. The remainder of the lungs are clear. Negative for pneumothorax or focal consolidation. The left costophrenic angle is sharp. IMPRESSION: Small to moderate loculated right pleural effusion. Dictated by Canidda Cruz MD @ 05/14/2020 7:29:09 PM Dictated by: Candida Cruz MD @ 05/14/2020 19:29:28 (Electronically Signed)
--- NOTE | 2020-05-14 19:45 | CT ---
CT chest Technique: Multiple axial sections through the chest were obtained. Intravenous contrast was utilized. Comparison: Prior chest CT of 07/11/[address] abdomen and pelvis study is also available dated 07/05/19. Findings: Thoracic aorta shows mild atherosclerotic change without aneurysm. Pulmonic artificial valve appears to be present. Small lymph nodes are seen believed to be within normal limits. No pericardial thickening is seen. Numerous metastatic lesions are seen within the liver which are seen on previous CT abdomen and pelvis study of 07/05/19. Most of the nodules have decreased in size from prior study. Small right-sided loculated pleural effusion is seen with areas of atelectasis seen adjacent to the pleural effusion. Pleural effusion has diminished from previous studies. Left lung is clear. Right lung is otherwise clear. Bone window settings were reviewed which shows no acute osseous finding. Impression: 1. Small loculated right-sided pleural effusion. This has diminished from previous studies. Mild atelectasis seen adjacent to the pleural effusion. 2. Numerous metastatic nodules within the liver most of which have diminished in size from previous study. 3. Other findings as noted above. Nothing acute is appreciated. Diagnostic code #9 This report was dictated in MDT
== END 2020-05-14 20:28 | disposition home or self-care (01) ==
LOC: MW.ED 15:33
DX: I11.0 Hypertensive heart disease with heart failure (principal); I50.9 Heart failure, unspecified; D64.9 Anemia, unspecified; J90 Pleural effusion, not elsewhere classified; K21.9 Gastro-esophageal reflux disease without esophagitis; E78.00 Pure hypercholesterolemia, unspecified; Z20.828 Contact with and (suspected) exposure to other viral communicable diseases; Z88.1 Allergy status to other antibiotic agents; Z88.8 Allergy status to other drugs, medicaments and biological substances; Z79.899 Other long term (current) drug therapy; Z79.82 Long term (current) use of aspirin
CPT/HCPCS: 36415; 71045; 71260; 80053; 81003; 83605; 83880; 84484; 85025; 85610; 87040; 87635; 93005; 99284; Q9967; 99283; U0002